=== PATIENT | female | born 1970 | race Caucasian/White ===

== ENCOUNTER → 2017-01-21 | Outpatient (CLI) | payer OTHER ==
--- NOTE | ~2017-01-21 | US128 ---
[id number] [facility] [address] [facility] [place]. [place], [place] [address] [id number] O MR#: [id number] [facility] #: [id number] NAME: CHERI PENA : 1970 SEX: F STUDY DATE/TIME: 01/21/2017 15:25 UNIT: CGUS ROOM: STUDY DESCRIPTION: Thyroid Attending Physician: Winston Ball M.D. Referring Physician: Winston Ball M.D. Ordering Physician: Winston Ball M.D. Primary Care Physician: Winston Ball M.D. MEDICAL IMAGING REPORT This report is preliminary unless electronic signature is present EXAM Thyroid ultrasound. INDICATIONS Neck swelling, difficulty breathing and fatigue for 6 months. Patient also apparently has a history of thyroid nodules for 2 months. TECHNIQUE Eddy-scale and color Doppler sonographic images were obtained through the thyroid gland. FINDINGS Right lobe of the thyroid gland measures 4.4 x 1.3 x 1.6 cm. Left lobe measures 4.3 x 2.6 x 2 cm. Isthmus measures about a millimeter in thickness. The patient has 2 tiny nodules within the right lobe of the thyroid gland. 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 The larger measures 4 x 3 x 5 mm while the smaller measures about 2 x 2 mm. There is a complex nodule seen within the left lobe of the thyroid gland measuring 2.6 x 1.6 x 3.6 cm. This does meet size criteria for percutaneous sampling and this is recommended. This patient also reports a palpable area within the midline within the submandibular area. Ultrasound of this area shows a cystic lesion measuring up to 2.4 x 1.5 x 1.8 cm. This is incompletely evaluated on this study and certainly could reflect a congenital lesion such as a thyroglossal duct cyst. I would suggest further evaluation with CT of the neck soft tissue with contrast. IMPRESSION 1. This patient has a dominant solid nodule within the left lobe of the thyroid gland measuring 3.6 x 2.6 x 1.6 cm. This does meet size criteria for percutaneous sampling and this is recommended. 2. This patient also has a cystic structure within the palpable area of concern within the midline and the submandibular area. Potentially this could reflect a thyroglossal duct cyst, further evaluation with a dedicated CT of the neck soft tissue with contrast is recommended. Dictated by... Bryanna Somers M.D. THIS IS AN ELECTRONICALLY VERIFIED REPORT Bryanna Somers M.D. at 01/22/2017 3:30 PM AFF/bd TD: 01/22/2017 14:18 JOB #: [id number] MEDICAL IMAGING REPORT Page 1 of 1 COPY
== END | disposition home or self-care (01) ==
LOC: CGUS 15:11
DX: E04.1 Nontoxic single thyroid nodule (principal)
CPT/HCPCS: 76536

== ENCOUNTER → 2017-02-05 | Outpatient (CLI) | payer OTHER ==
--- NOTE | ~2017-02-05 | NM86 ---
[facility] A Service of [facility] & [facility] RADIOLOGY TEXT RESULTS PATIENT: CHERI PENA LOCATION: [facility] : 74 UNIT #: [id number] AGE: [address]: Winston Ball MD SEX: F ORDER DR: [id number] [facility]. [place], [place] [address] [id number] O MR#: [id number] Acc #: [id number] NAME: CHERI PENA : 1970 SEX: F STUDY DATE/TIME: 02/05/2017 7:12 UNIT: [facility] ROOM: STUDY DESCRIPTION: NM Thyroid Img W Uptake Attending Physician: Winston Ball M.D. Referring Physician: Winston Ball M.D. Ordering Physician: Winston Ball M.D. Primary Care Physician: Winston Ball M.D. MEDICAL IMAGING REPORT This report is preliminary unless electronic signature is present EXAM Nuclear medicine thyroid uptake and scan. Date: 02/05/2017 HISTORY Left neck mass noticed 1 year ago. 10 pounds weight loss in the past year. Increased nervousness, fatigue and hair loss. No history of thyroid surgery. COMPARISON Thyroid ultrasound 01/21/2017. FINDINGS Following the ingestion of 155.9 mcCi I-123 in capsular form, delayed 24-hour pinhole images were obtained of the neck in the PAIGE, AZERI and anterior projections. There is marked radiopharmaceutical uptake throughout the left thyroid lobe thought to correspond to the dominant predominantly a solid nodule occupying most of the left thyroid lobe documented on the previous thyroid ultrasound. This nodule measured up to 3.6 cm craniocaudal. There is a relative hypoactivity or diminished radiopharmaceutical uptake within the right thyroid lobe, comparatively. The calculated 23-hour I-123 uptake is 22.9% (normal at this institution between 10-30%). IMPRESSION 1. Abnormal asymmetric uptake within enlarged left thyroid lobe, thought to correspond to the uptake within a dominant 3.6 cm nodule occupying most of left thyroid lobe. This corresponds to the recent ultrasound findings. Findings may represent hyperfunctioning adenoma. [facility] A Service of [facility] & [facility] RADIOLOGY TEXT RESULTS PATIENT: CHERI PENA LOCATION: [facility] : 74 UNIT #: [id number] AGE: [address]: Winston Ball MD SEX: F ORDER DR: Ultrasound-guided fine needle aspiration is advised if not previously performed. 2. 23-hour I-123 uptake 22.9%. Dictated by... Cecilia Ibrahim M.D. THIS IS AN ELECTRONICALLY VERIFIED REPORT Cecilia Ibrahim M.D. at 02/08/2017 8:31 AM CONRADO/pierce TD: 02/05/2017 10:31 JOB #: [id number] MEDICAL IMAGING REPORT Page 1 of 1 COPY
== END | disposition home or self-care (01) ==
LOC: CNUC 06:44
DX: E04.9 Nontoxic goiter, unspecified (principal); R94.8 Abnormal results of function studies of other organs and systems; E04.1 Nontoxic single thyroid nodule
CPT/HCPCS: 78014; A9516